=== PATIENT | male | born 1990 ===

== ENCOUNTER 2018-07-15 17:12 | Emergency (ER) | payer BC ==
[2018-07-15 17:24] VITALS: BMI 28.7
[2018-07-15] MEDS ORDERED: Dexamethasone 4 mg/1 ml IM STA (17:46)
--- NOTE | 2018-07-15 17:54 | C.PDOC ---
History Of Present Illness 28 y/o male presents to the ED complaining of sore throat and fever for three days. He notes pain when swallowing and speaking. He denies any medical problems , cough or sputum production, chest pain, headache, neck pain, difficulty breathing or swallowing. Pt denies taking any antibiotics. Time Seen by Provider: 07/15/18 17:21 Chief Complaint (Nursing): ENT Problem History Per: Patient History/Exam Limitations: no limitations Onset/Duration Of Symptoms: Days Current Symptoms Are (Timing): Still Present Associated Symptoms: Fever, Sore Throat. denies: Cough, Sputum Recent travel outside of the [place]: No Past Medical History Reviewed: Historical Data, Nursing Documentation, Vital Signs Vital Signs: Last Vital Signs Temp 100.1 F H 07/15/18 18:59 Pulse 86 07/15/18 18:59 Resp 18 07/15/18 18:59 BP 130/72 07/15/18 18:19 Pulse Ox 100 07/15/18 20:01 - Medical History PMH: No Chronic Diseases Surgical History: No Surg Hx Family History: States: Unknown Family Hx - Social History Hx Alcohol Use: Yes Hx Substance Use: No - Immunization History Hx Tetanus Toxoid Vaccination: No Hx Influenza Vaccination: No Hx Pneumococcal Vaccination: No Review Of Systems Constitutional: Positive for: Fever. Negative for: Chills ENT: Positive for: Throat Pain. Negative for: Ear Pain, Nose Congestion Cardiovascular: Negative for: Chest Pain Respiratory: Negative for: Cough, Shortness of Breath, Sputum, Wheezing Physical Exam - Physical Exam Appears: Well, Non-toxic, No Acute Distress ( pt is able to speak though notes it is painful, no change in voice. Swallowing without diffiuculty, no drooling. ) Skin: Normal Color, Warm, Dry Head: Atraumatic, Normacephalic Eye(s): bilateral: Normal Inspection, EOMI Ear(s): Bilateral: Normal Nose: Normal Oral Mucosa: Moist Throat: Erythema, Exudate, No Drooling Neck: Normal ROM, Supple Lymphatic: Normal Exam Chest: Symmetrical Cardiovascular: Rhythm Regular Respiratory: Normal Breath Sounds, No Accessory Muscle Use, No Rales, No Rhonchi , No Wheezing Extremity: Normal ROM Extremity: Bilateral: Normal Color And Temperature, Normal ROM Neurological/Psych: Oriented x3, Normal Speech ED Course And Treatment O2 Sat by Pulse Oximetry: 100 (RA) Pulse Ox Interpretation: Normal Progress Note: Patient given Decadron Inj 10 mg, Tylenol 975 mg PO, and Lidocaine 2% 15 ml PO. On reassessment, patient is resting comfortably, and is in no acute distress. Tolerating PO. Fever has improved. REturn precautions given. Patient was instructed to follow up with physician/clinic in 1-2 days for further evaluation. Case discussed with Dr Jim, agreed up plan and treatment. Disposition - Disposition Disposition: HOME/ ROUTINE Disposition Time: 18:02 Condition: STABLE Additional Instructions: Vaya a corbett mdico o la clnica en 2-5 cline sin falta, para mas evaluacin. [place] los medicamentos nate indicado. Volver a la ayesha de emergencia en cualquier momento si los sntomas persisten o empeoran. 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 - Scribe Statement The provider has reviewed the documentation as recorded by the Scribe (Elsie Brandt) All medical record entries made by the Scribe were at my direction and personally dictated by me. I have reviewed the chart and agree that the record accurately reflects my personal performance of the history, physical exam, medical decision making, and the department course for this patient. I have also personally directed, reviewed, and agree with the discharge instructions and disposition.
[2018-07-15 18:21] VITALS: BP 130/72
[2018-07-15 18:59] VITALS: PULSE 86; RESP 18; TEMP 100.1
[2018-07-15 20:02] VITALS: O2SAT 100
== END 2018-07-15 19:22 | disposition home or self-care (01) ==
LOC: C.ER 17:12
DX: J03.90 Acute tonsillitis, unspecified (principal)
CPT/HCPCS: 96372; 99283; J1100

== ENCOUNTER 2018-07-29 17:58 | Emergency (ER) | payer BC ==
[2018-07-29 17:58] VITALS: BMI 28.7
[2018-07-29 18:09] VITALS: BP 130/85; PULSE 88; RESP 14; TEMP 100.3; O2SAT 97
--- NOTE | 2018-07-29 18:32 | C.PDOC ---
History Of Present Illness Patient presents to ED c/o sore throat, chills and pain with swallowing since yesterday. He denies cough, runny nose, ear pain, sick contacts. Time Seen by Provider: 07/29/18 18:23 Chief Complaint (Nursing): ENT Problem History Per: Patient History/Exam Limitations: no limitations Onset/Duration Of Symptoms: Days (2) Current Symptoms Are (Timing): Still Present Sick Contacts (Context): None Associated Symptoms: Chills, Sore Throat. denies: Cough, Sputum, Neck Pain, Nasal Congestion Severity: Moderate Past Medical History Reviewed: Historical Data, Nursing Documentation, Vital Signs Vital Signs: Last Vital Signs Temp 100.3 F H 07/29/18 18:04 Pulse 88 07/29/18 18:04 Resp 14 07/29/18 18:04 BP 130/85 07/29/18 18:04 Pulse Ox 97 07/29/18 18:32 - Medical History PMH: No Chronic Diseases Family History: States: No Known Family Hx - Social History Hx Alcohol Use: Yes Hx Substance Use: No - Immunization History Hx Tetanus Toxoid Vaccination: No Hx Influenza Vaccination: No Hx Pneumococcal Vaccination: No Review Of Systems Constitutional: Positive for: Chills ENT: Positive for: Throat Pain. Negative for: Nose Congestion Cardiovascular: Negative for: Chest Pain Respiratory: Negative for: Cough, Shortness of Breath Gastrointestinal: Negative for: Nausea, Vomiting, Abdominal Pain Skin: Negative for: Rash Physical Exam - Physical Exam Appears: Well, Non-toxic, In Acute Distress (in mild pain) Skin: Normal Color, Warm, Dry, No Rash Eye(s): bilateral: Other (inhected sclera B/L ) Nose: Normal, Other (no rhinorrhea ) Oral Mucosa: Moist Tongue: Other (strawberry tongue ) Throat: Erythema, Exudate (tonsils swollen with exudates B/L), No Drooling, Other (uvula midline and normal in appearance ) Lymphatic: Adenopathy (upper cervical) Cardiovascular: Rhythm Regular Respiratory: Normal Breath Sounds, No Rales, No Rhonchi, No Wheezing Neurological/Psych: Oriented x3 ED Course And Treatment O2 Sat by Pulse Oximetry: 97 (RA) Pulse Ox Interpretation: Normal Medical Decision Making Medical Decision Making: Centor Score (Modified/McIsaac) for Strep Pharyngitis from [employer] on 2017 All calculations should be rechecked by clinician prior to use RESULT SUMMARY: 4 points 51% - 53% likelihood of strep Consider rapid strep testing and/or culture. Note: IDSA and ELLEN no longer recommend empiric treatment for strep based on symptomatology alone. INPUTS: Age > 0 = 15-44 years Exudate or swelling on tonsils > 1 = Yes Tender/swollen anterior cervical lymph nodes > 1 = Yes Temp >38C (100.4F) > 1 = Yes Cough > 1 = Cough absent Disposition Counseled Patient/Family Regarding: Diagnosis, Need For Followup, Rx Given - Disposition Referrals: Norris Conway MD [Medical Doctor] - Disposition: HOME/ ROUTINE Disposition Time: 18:45 Condition: STABLE Additional Instructions: FOLLOW UP WITH YOUR DOCTOR OR CLINIC IN 1-2 DAYS USE MEDICATIONS DIRECTED TAKE ANTIBIOTICS UNTIL FINISHED! DRINK PLENTY OF FLUIDS RETURN TO EMERGENCY ROOM IF SYMPTOMS WORSEN SEGUIMIENTO CON HERBERT MDICO O CLNICA EN 1-2 BLAKELY USE MEDICAMENTOS SEGN LO INDICADO TOME ANTIBITICOS HASTA QUE HAYA TERMINADO! BEBER MUCHO LQUIDO REGRESE AL PATRICIA DE EMERGENCIA SI LOS SNTOMAS EMPEORAN Prescriptions: Amoxicillin 875 mg PO BID #14 tab Ibuprofen [Motrin Tab] 600 mg PO Q6 PRN #30 tab PRN Reason: fever/pain Phenol/Glycerin [Chloraseptic [place]] 1 spray MM Q6 PRN #1 spray PRN Reason: THROAT PAIN Instructions: Strep Throat (DC) Forms: [employer] (Czech) Print Language: ROMANIAN - POA Present On Arrival: None - Clinical Impression Clinical Impression: Acute bacterial tonsillitis
== END 2018-07-29 18:40 | disposition home or self-care (01) ==
LOC: C.ER 17:58
DX: J03.90 Acute tonsillitis, unspecified (principal)